=== PATIENT | male | born 1985 | race Caucasian/White ===

== ENCOUNTER 2022-06-14 09:39 | Outpatient (CLI) | payer MEDICAID, SELFPAY ==
[2022-06-14 15:27] LABS: Chlamydia DNA Amplified* NOT DETECTED (No Detected); GC DNA Amplified* NOT DETECTED (No Detected)
== END 2022-06-14 09:40 | disposition home or self-care (01) ==
PROVIDERS: PCP Family Medicine; Visit Provider Physician Assistant Medical
DX: Z11.3 Encounter for screening for infections with a predominantly sexual mode of transmission (principal)
CPT/HCPCS: 80053; 80061; 84443; 86592; 86703; 86706; 86803; 87340; 87491; 87591

== ENCOUNTER 2023-08-02 11:42 | Outpatient (CLI) | payer MEDICAID, SELFPAY | END 2023-08-02 11:43 | disposition home or self-care (01) | PROVIDERS: PCP Physician Assistant Medical; Visit Provider Family Medicine | DX: N52.9 Male erectile dysfunction, unspecified (principal); R29.898 Other symptoms and signs involving the musculoskeletal system | CPT/HCPCS: 80053; 84403; 84443 ==

== ENCOUNTER 2023-08-21 16:00 | Outpatient (CLI) | payer MEDICAID, SELFPAY ==
--- NOTE | 2023-08-21 16:30 | CRLHL7_ITS ---
For Patients: As a result of the Century Cures Act, medical imaging exams and procedure reports are released immediately into your electronic medical record. You may view this report before your referring provider. If you have questions, please contact your health care provider. INDICATION: Abnormal lab values COMPARISON: none TECHNIQUE: Real time gregory scale imaging and color Doppler analysis was performed of the right upper quadrant. FINDINGS: The patient`s liver is of normal size and has mildly increased echogenicity. Normal patency of the main portal vein which measures 1.3 cm. There is a normal appearance of the hepatic IVC and proximal abdominal aorta. There is no evidence of ascites. The gallbladder is of normal size and there is no evidence of intraluminal stones or sludge. The gallbladder wall measures 1 mm in thickness. The common bile duct is of normal size and measures 3.7 mm in diameter at the level of the lynette hepatis. The pancreas appears normal. There is no evidence of a stone or hydronephrosis within the right kidney. The right kidney measures 11.4 cm in length. Small cyst upper pole right kidney measures 14 x 13 x 17 millimeters. IMPRESSION: Mild diffuse hepatic steatosis. Incidental right renal cyst. Dictated by George Segovia MD @ 08/21/2023 7:11:09 PM (Electronically Signed)
== END 2023-08-21 16:01 | disposition home or self-care (01) ==
LOC: US 16:02
PROVIDERS: PCP Physician Assistant Medical; Visit Provider Family Medicine
DX: R79.89 Other specified abnormal findings of blood chemistry (principal); K76.0 Fatty (change of) liver, not elsewhere classified
CPT/HCPCS: 76705

== ENCOUNTER 2023-09-27 12:42 | Outpatient (CLI) | payer MEDICAID, SELFPAY ==
[2023-10-01 11:38] LABS: HSV 1 Subtype by PCR Not Detected; HSV 2 Subtype by PCR Not Detected; Herpes Simplex Subtype Source Tissue
== END 2023-09-27 12:43 | disposition home or self-care (01) ==
LOC: LKVREF 12:44
PROVIDERS: PCP Physician Assistant Medical; Visit Provider Nurse Practitioner Family
DX: K13.0 Diseases of lips (principal)
CPT/HCPCS: 87529

== ENCOUNTER 2024-07-28 13:12 | Outpatient (CLI) | payer MEDICAID, SELFPAY | END 2024-07-28 13:13 | disposition home or self-care (01) | LOC: LKVREF 13:12 | PROVIDERS: Visit Provider Family Medicine | DX: R79.89 Other specified abnormal findings of blood chemistry (principal); G47.00 Insomnia, unspecified; L98.9 Disorder of the skin and subcutaneous tissue, unspecified | CPT/HCPCS: 80061; 80076 ==